=== PATIENT | female | born 1945 | race Caucasian/White ===

== ENCOUNTER → 2017-01-02 | Outpatient (CLI) | payer OTHER | LOC: RAD 02:54 | DX: Z12.31 Encounter for screening mammogram for malignant neoplasm of breast (principal) ==

== ENCOUNTER → 2018-03-23 | Outpatient (CLI) | payer OTHER | LOC: RAD 11:57 | DX: Z12.31 Encounter for screening mammogram for malignant neoplasm of breast (principal) ==

== ENCOUNTER → 2019-03-27 | Outpatient (CLI) | payer OTHER | LOC: RAD 11:02 | DX: Z12.31 Encounter for screening mammogram for malignant neoplasm of breast (principal) ==

== ENCOUNTER → 2020-03-31 | Outpatient (CLI) | payer OTHER | LOC: BC 09:12 | DX: Z12.31 Encounter for screening mammogram for malignant neoplasm of breast (principal) ==